=== PATIENT | female | born 1995 ===

== ENCOUNTER 2017-03-11 10:37 | Emergency (ER) | payer BC ==
--- NOTE | 2017-03-11 13:01 | UC ---
Pediatric ENT HPI - HPI Summary HPI Summary: 21 year old female with cough. c/o cough, congestion, headache, and chills x [address] sister Dx with strep today . [ End ] - History Of Current Complaint Chief Complaint: UCRespiratory Stated Complaint: FEVER, CHILLS Time Seen by Provider: 03/11/17 13:00 Hx Obtained From: Patient, Family/Engineering Scientist Onset/Duration: Gradual Onset Timing: Intermittent, Lasting: Severity Initially: Moderate Severity Currently: Moderate Pain Intensity: 0 Aggravating Factor(s): Nothing Alleviating Factor(s): Nothing - Allergies/Home Medications Allergies/Adverse Reactions: Allergies Allergy/AdvReac Type Severity Reaction Status Date / Time Penicillins Allergy Hives Verified 03/11/17 11:59 sulfamethoxazole Allergy Hives Verified 03/11/17 11:59 [From Bactrim] trimethoprim [From Bactrim] Allergy Hives Verified 03/11/17 11:59 Past Medical History Previously Healthy: Yes - Family History Family History Of Seizure: No - Social History Hx Smoking Exposure: No Review Of Systems Constitutional: Fever, Chills ENT: Ear Pain, Throat Pain Respiratory: Cough All Other Systems Reviewed And Are Negative: Yes Physical Exam Triage Information Reviewed: Yes Vital Signs: Initial Vital Signs Temp 98.9 F 03/11/17 11:59 Pulse 96 03/11/17 11:59 Resp 16 03/11/17 11:59 BP 131/78 03/11/17 11:59 Pulse Ox 98 03/11/17 11:59 Vital Signs Reviewed: Yes Appearance: Well-Appearing, No Pain Distress, Well-Nourished Eyes: Positive: Normal, Conjunctiva Clear ENT: Positive: Normal ENT inspection, Hearing grossly normal, Pharynx normal, Nasal congestion, TMs normal Neck: Positive: Supple, Nontender Respiratory: Positive: Chest non-tender, Lungs clear, Normal breath sounds, No respiratory distress, No accessory muscle use Cardiovascular: Positive: Normal, RRR, No Murmur Musculoskeletal: Positive: Normal Neurological: Positive: Normal Psychological: Positive: Normal Pediatric EENT Course/Dx - Course Course Of Treatment: Sister with strep and pt with similar sx -- start treatment at this time. allergy to PCN and sulfa -- start z pack -- they are aware of SE - Differential Dx/Diagnosis Differential Diagnosis/HQI/PQRI: Otitis Media, Pharyngitis, Sinusitis, Tonsillitis, URI, Serous Otitis Provider Diagnoses: Strep pharyngitis Discharge - Discharge Plan Condition: Good Disposition: HOME Prescriptions: Azithromycin TAB* [Zithromax TAB (Z-ANJALI) 250 mg #6 tabs] 2 tab PO .TODAY, THEN 1 DAILY #1 anjali Patient Education Materials: Strep Throat (ED) Referrals: Yadira Orozco MD [Primary Care Provider] - 3 Days
== END 2017-03-11 13:59 | disposition home or self-care (01) ==
LOC: UCCORT 10:37
DX: J02.0 Streptococcal pharyngitis (principal)
CPT/HCPCS: 99202; G0463